=== PATIENT | female | born 1995 | race Caucasian/White ===

== ENCOUNTER 2017-02-17 20:05 | Emergency (ER) | payer OTHER ==
[2017-02-17 20:52] VITALS: BP 132/66
--- NOTE | 2017-02-17 22:11 | UC ---
Throat Pain/Nasal Eliu HPI - HPI Summary HPI Summary: patient has had increased throat pain, left ear ache, dysphagia. on and off fever. She did take 3 doses of augmentin. Pain continues to increaed, she is having a hard time talking, she is able to swollow small amounts of liquids - History of Current Complaint Chief Complaint: UCGeneralIllness Stated Complaint: ST,FEVER Time Seen by Provider: 02/17/17 21:44 Hx Obtained From: Patient Hx Last Menstrual Period: 02/14/17 ?: No Onset/Duration: Sudden Onset, Lasting Days Severity: Severe Cough: Nonproductive Associated Signs & Symptoms: Positive: Dysphagia, Wheezing, Hoarseness, Sinus Discomfort, Fever - Epiglottits Risk Factors Epiglottis Risk Factors: Negative - Allergies/Home Medications Allergies/Adverse Reactions: Allergies Allergy/AdvReac Type Severity Reaction Status Date / Time seasonal Allergy Eyes Uncoded 02/17/17 20:52 Itchy/Swollen/Red/Watery Home Medications: Home Medications Amoxicillin/Clavulanate TAB* [Augmentin TAB 875*] 875 mg PO BID 02/17/17 [ History Confirmed 02/17/17] Fluticasone NASAL SPRAY 50MCG* [Flonase NASAL SPRAY 50MCG*] 1 spray BOTH NARES BID 02/17/17 [History Confirmed 02/17/17] [id number] [Mucinex Sinus-Max Pressur 10-650-400 mg/20Ml] 20 ml PO BID PRN 02/17/17 [History Confirmed 02/17/17] PMH/Surg Hx/FS Hx/Imm Hx Previously Healthy: Yes Endocrine History Of: Denies: Diabetes, Thyroid Disease, Hyperthyroidism, Hypothyroidism, Dyslipidemia Cardiovascular History Of: Denies: Cardiac Disorders, Hypertension, Pacemaker/ICD, Myocardial Infarction , Congestive Heart Failure, Atrial Fibrillation, Deep Vein Thrombosis, Bleeding Disorders Respiratory History Of: Denies: COPD, Asthma, Bronchitis, Pneumonia, Pulmonary Embolism GI/ History Of: Denies: Gastroesophageal Reflux, Ulcer, Gastrointestinal Bleed, Gall Bladder Disease, Kidney Stones, Diverticulitis, Renal Disease, Urosepsis Neurological History Of: Denies: TIA, CVA, Dementia, Seizures, Migraine Psychological History Of: Denies: Anxiety, Depression, Bipolar Disorder, Schizophrenia, Post Traumatic Stress Disorder Cancer History Of: Denies: Lung Cancer, Colorectal Cancer, Breast Cancer, Prostate Cancer, Cervical Cancer Other History Of: Negative For: HIV, Hepatitis B, Hepatitis C - Surgical History Surgical History: None - Family History Known Family History: Positive: None Negative: Cardiac Disease, Hypertension - Social History Alcohol Use: Weekly Alcohol Amount: 8 Substance Use Type: None Smoking Status (MU): Never Smoked Tobacco Review of Systems Constitutional: Fever Skin: Negative Eyes: Negative ENT: Dental Pain, Sore Throat, Ear Ache, Nasal Discharge Respiratory: Cough Cardiovascular: Negative Gastrointestinal: Negative Genitourinary: Negative Motor: Negative Neurovascular: Negative Musculoskeletal: Negative Neurological: Headache Psychological: Negative All Other Systems Reviewed And Are Negative: Yes Physical Exam Triage Information Reviewed: Yes Appearance: Well-Nourished, Ill-Appearing, Pain Distress Vital Signs: Initial Vital Signs Temp 98.5 F 02/17/17 20:44 Pulse 99 02/17/17 20:44 Resp 14 02/17/17 20:44 BP 132/66 02/17/17 20:44 Pulse Ox 100 02/17/17 20:44 Vital Signs Reviewed: Yes Eye Exam: Normal Eyes: Positive: Conjunctiva Clear ENT: Positive: Pharyngeal erythema, TM bulging, TM red - left, Tonsillar swelling - left tonsil crossing over the midline of the throat, exudate noted, right tonisl normal size,, Tonsillar exudate Dental Exam: Normal Dental: Positive: Cervical Lymphadenopathy - left cervical Neck exam: Normal Neck: Positive: Supple, Nontender, Enlarged Nodes @ Respiratory Exam: Normal Respiratory: Positive: Chest non-tender, Lungs clear, Normal breath sounds, No respiratory distress, No accessory muscle use Cardiovascular Exam: Normal Cardiovascular: Positive: RRR, No Murmur, Pulses Normal Abdominal Exam: Normal Abdomen Description: Positive: Nontender, No Organomegaly, Soft Bowel Sounds: Positive: Present Musculoskeletal Exam: Normal Musculoskeletal: Positive: Strength Intact, ROM Intact, No Edema Neurological Exam: Normal Neurological: Positive: Alert, Muscle Tone Normal Psychological Exam: Normal Skin Exam: Normal Throat Pain/Nasal Course/Dx - Course Course Of Treatment: hx obtained, exam performed, meds reviewed, patient agrees to go to ER for tonsillar abcess evaluation. talked with Billie Olivo NP. - Differential Dx/Diagnosis Differential Diagnosis/HQI/PQRI: Influenza, Laryngitis, Otitis Media, Pharyngitis, Sinusitis, URI Provider Diagnoses: tonsil abscess, left. cervical lymphadenopathy - Physician Notification/Consults Discussed Patient Care With: Shari Olivo NP [facility] ER Instructed by Provider To: MD Will See In ED Discharge - Discharge Plan Condition: Stable Disposition: TRANS HIGHER LVL OF CARE FAC
== END 2017-02-17 22:14 | disposition short-term general hospital (02) ==
LOC: UCCORT 20:05
DX: J36 Peritonsillar abscess (principal); R59.0 Localized enlarged lymph nodes
CPT/HCPCS: 99212; G0463